=== PATIENT | male | born 1955 | race Caucasian/White ===

== ENCOUNTER 2022-03-10 05:20 | Observation (INO) | payer MEDICARE, SELFPAY ==
[2022-03-10] VITALS (11 sets, daily range): BP systolic 125–154; BP diastolic 58–76; PULSE 57–70; RESP 16–20; TEMP 36.1–37.2; O2SAT 96–100; BMI 34.9
--- NOTE | 2022-03-10 | ECHO_ITS ---
Patient Info Name: Gustabo Lau Age: 66 years : 1955 Gender: Male Ht: 75 in Wt: 294 lbs BSA: 2.70 m2 HR: 61 bpm BP: 135 / 58 mmHg Technical Quality: Fair Exam Date: 03/10/2022 11:49 AM Exam Location: [facility] Pulmonary Exam Room: 340 Patient Status: Outpatient Admit Date: 03/10/2022 Staff Ordering Physician: Micky Anderson Mechanic Chief: Shanell Aleln RDCS Attending Provider: Dewey Islas MD Referring Physician: Justin SIN; Exam Type: CA echo doppler w bubble study Study Info Indications - TIA Complete two-dimensional, color flow and Doppler transthoracic echocardiogram is performed with agitated saline. Contrast/Agitated Saline Contrast/Ag. Saline: Agitated Saline Amount: 20.00 ml Existing IV Access: Yes Summary 1. Left ventricular chamber dimension is normal. 2. Left ventricular systolic function is normal, estimated at 60-65%. 3. The left ventricular diastolic function is grade I diastolic dysfunction. 4. E/e' 7 is not elevated. 5. Left atrial chamber dimension is mildly enlarged. 6. There is trace mitral valve regurgitation. 7. No pulmonary hypertension, estimated pulmonary arterial systolic pressure is 24 mmHg. 8. There is trace pulmonic regurgitation. Left Ventricle E/e' 7 is not elevated. Left ventricular chamber dimension is normal. Left ventricular systolic function is normal, estimated at 60-65%. The left ventricular diastolic function is grade I diastolic dysfunction. Right Ventricle Right ventricular chamber dimension is normal. Right ventricular systolic function is normal. Left Atria Left atrial chamber dimension is mildly enlarged. Right Atria Right atrial chamber dimension is normal. Atrial Septum Agitated saline injection with and without valsalva maneuver opacified right side cardiac chambers without obvious shunt to left side cardiac chambers. Intact interatrial septum visualized by 2D and agitated saline imaging. Aortic Valve The aortic valve is trileaflet. There is no aortic valve stenosis. There is no aortic valve regurgitation. Pulmonic Valve There is trace pulmonic regurgitation. Mitral Valve There is no mitral valve stenosis. There is trace mitral valve regurgitation. Tricuspid Valve There is no tricuspid valve regurgitation. No pulmonary hypertension, estimated pulmonary arterial systolic pressure is 24 mmHg. Pericardium/Pleural There is no pericardial effusion. Inferior Vena Cava Normal inferior vena cava with >50% collapse upon inspiration consistent with normal right atrial pressure, 5 mmHg. Aorta The aortic root size at the sinus of Valsalva is normal. Left Ventricular Outflow Tract Name Value Normal LVOT 2D LVOT Diameter 2.2 cm LVOT Doppler LVOT Peak Velocity 119 cm/s LVOT Peak Gradient 6 mmHg LVOT Mean Gradient 3 mmHg LVOT VTI 25 cm LVOT VTI/AV VTI Ratio 0.8 LVOT Stroke Volume
--- NOTE | ~2022-03-10 | MR_ITS ---
EXAMINATION: MR brain/brain stem wo con EXAM DATE: 03/10/2022 12:59 INDICATION: Transient ischemic attack. Right arm and leg numbness and tingling. TECHNIQUE: Magnetic resonance imaging (MRI) of the brain/brain stem obtained without contrast. Keenanitt al T1, axial diffusion, gradient echo (T2*), T1, T2, FLAIR sequences obtained. Correlation is made t o head CT earlier same day. FINDINGS: Punctate cortical acute infarction in the right frontal lobe. Linear 1 x 5 mm region of inc reased diffusion weighted signal in the left periventricular region, possible acute infarction (this left-sided infarct could cause right-sided symptoms clinically). There is no hemorrhagic conversion. No brain mass, extra-axial collections, obstructive hydrocephalus. Flow voids are seen in the cerebra l arteries on the T2 weighted sequences consistent with their expected patency. Orbits and soft ti ssues are unremarkable. IMPRESSION: Punctate right cortical and small left periventricular infarctions which are probably ac darron. Reviewed, dictated and finalized at location B. IMPRESSION: Punctate right cortical and small left periventricular infarctions which are probably acute.
--- NOTE | ~2022-03-10 | CT_ITS ---
EXAMINATION: CT brain wo con INDICATION: Suspected stroke COMPARISON: None TECHNIQUE: Standard unenhanced head CT. The dose-length product (DLP) was 605.33 mGy-cm. The mA was a djusted according to patient size. Iterative reconstruction technique was employed. FINDINGS: There is no intracranial hemorrhage, acute infarction, or abnormal mass lesion. The ventric les are normal. There is no abnormal mass effect or midline shift. The smart-white matter differentiat ion is normal. The basal cisterns are patent. The orbits are normal. The paranasal sinuses, mastoids and calvarium are normal. IMPRESSION: 1. No acute intracranial abnormality. Reviewed, dictated and finalized at location A.
--- NOTE | ~2022-03-10 | US_ITS ---
EXAMINATION: US carotid duplex BI DATE: 03/10/2022 13:28 INDICATION: Right frontal lobe infarct. Transient ischemic attack. TECHNIQUE: Grayscale, color Doppler, and pulsed Doppler images of the cervical carotid arteries were obtained. The degree of vessel stenosis is placed in one of the following categories: normal, <50%, 5 0-69%, >=70% but less than near-occlusion, near-occlusion, or total occlusion. Note that percent sten osis relative to normal distal artery lumen diameter is indirectly measured from velocity measurement s as described by Eliot, et al. Radiology 2003; 229:340-346. COMPARISON: None. FINDINGS: RIGHT: The right common carotid artery (CCA) peak systolic velocity (PSV) is 127 cm/s. The right internal ca rotid artery (ICA) PSV is 83 cm/s. The right ICA end-diastolic velocity (EDV) is 21 cm/s. The right I CA/CCA PSV ratio is 0.7. Grayscale and color Doppler images yield an estimate of <50% diameter reduct ion from plaque in the ICA. There is antegrade flow in the right vertebral artery. LEFT: The left CCA PSV is 111 cm/s. The left ICA PSV is 94 cm/s. The left ICA EDV is 21 cm/s. The left ICA/ CCA PSV ratio is 0.9. Grayscale and color Doppler images yield an estimate of <50% diameter reduction from plaque in the ICA. There is antegrade flow in the left vertebral artery. IMPRESSION: 1. <50% stenosis in the right internal carotid artery. 2. <50% stenosis in the left internal carotid artery. Reviewed, dictated and finalized at location A.
--- NOTE | ~2022-03-10 | XR_ITS ---
EXAMINATION: XR chest 1V portable INDICATION: Stroke symptoms, suspected CVA TECHNIQUE: Portable AP chest at 0616 hours COMPARISON: None available FINDINGS: The lungs are free of acute opacities. There is no pleural effusion or pneumothorax. The ca rdiomediastinal silhouette is normal. IMPRESSION: 1. No acute cardiopulmonary abnormality. Reviewed, dictated and finalized at location A.
--- NOTE | 2022-03-10 05:22 | ECG_ITS ---
Measurements Intervals [employer] Rate: 60 P: 72 WY: 185 QRS: -7 QRSD: 108 T: 31 QT: 396 QTc: 398 Interpretive Statements SINUS RHYTHM WITH OCCASIONAL VENTRICULAR PREMATURE COMPLEXES NONSPECIFIC T-WAVE ABNORMALITY ABNORMAL ECG NO PREVIOUS ECG AVAILABLE FOR COMPARISON Electronically Signed On 03-10-2022 15:45:59 CDT by Oliver Hensley M.D.
--- NOTE | 2022-03-10 05:47 | ED.NEUROSD ---
HPI - Neuro Symptoms/Deficit General Chief Complaint: Suspected CVA Stated Complaint: cva symptoms Time Seen by Provider: 03/10/22 05:30 Source: patient and EMS Mode of arrival: EMS Limitations: no limitations History of Present Illness HPI Narrative: 66-year-old male states he was in his normal state of health when he went to bed about 9:00 last night. He woke up with some numbness to his right arm. He states he is had this in both of his hands in the past but never to his arm. He got concerned and then he could not use his right arm. He also states the time he could not use his right leg. That was at 415 this morning when he woke up. 911 was chronic brought in by EMS. Per EMS on their arrival his right arm and right leg were flaccid. By the time he got to the emergency room and was coming in from the ambulance bay he had full recovery and full use of his right arm and right leg completely. He never had any difficulty in speaking. There is no facial asymmetry. He has never had anything like this before. He does have a history of hypertension. Related Data Allergies Allergy/AdvReac Type Severity Reaction Status Date / Time Tetanus Vaccines and Toxoid Allergy Hives Verified 03/10/22 05:35 Review of Systems Review of Systems: CONSTITUTIONAL: Denies fever, chills, or sweats. EYES: Denies visual changes, redness, or discharge. ENT: Denies rhinorrhea, congestion, sore throat, or otalgia. CARDIOVASCULAR: Denies chest pain, palpitations, or edema. RESPIRATORY: Denies cough or dyspnea. GASTROINTESTINAL: Denies abdominal pain, nausea, vomiting, or diarrhea. GENITOURINARY: Denies dysuria or hematuria. SKIN: Denies rash or itching. MUSCULOSKELETAL: Denies back pain, joint pain, or myalgia. NEUROLOGIC: No headache. Patient had weakness to the entire right side including right arm and leg. PSYCHIATRIC: Denies anxiety or depression. Exam Narrative: APPEARANCE: Well appearing, no pain or distress, well-nourished. Head normocephalic and atraumatic. EYES: PERRLA/EOMI, conjunctivae very clear. NOSE: Normal with no drainage EARS:TMS clear Javier Kelsey, with good light reflex. THROAT: Pharynx clear, no exudate. NECK: Supple. No adenopathy, no masses. RESPIRATORY: Airway patent, respirations nonlabored. Clear to auscultation bilaterally, no rales, rhonchi, wheezing. CARDIOVASCULAR: Regular rate and rhythm without murmurs, rubs, or gallops. ABDOMINAL: Soft, nontender, nondistended, no hepatosplenomegaly Musculoskeletal: Moves all extremities. Strength/ROM intact, No edema, No calf tenderness. NEURO: Alert. Cranial nerves II through XII intact. Normal gait. Good coordination. Nonfocal examination. SKIN:: Warm, dry. Normal Color PSYCHIATRIC: Normal affect/mood, normal interaction Course Vital Signs Vital signs: Vital Signs Temperature 97.0 F L 03/10/22 05:25 Pulse Rate 70 03/10/22 05:25 Respiratory Rate 16 03/10/22 05:25 Blood Pressure 154/69 H 03/10/22 05:25 Pulse Oximetry 100 03/10/22 05:25 Temperature 97.0 F L 03/10/22 05:25 Pulse Rate 64 03/10/22 05:33 Respiratory Rate 16 03/10/22 05:33 Blood Pressure 154/69 H 03/10/22 05:33 Pulse Oximetry 98 03/10/22 05:33 MDM - Neuro Symptoms/Deficit MDM Narrative Medical decision making narrative: Patient had a significant TIA with flaccidity to the right arm and right leg. It resolved after about 1-1/[address] scan shows no acute pathology or intracranial bleed at this time. Patient will be admitted to the hospital for additional work-up and evaluation. This was all explained to the patient. Discussed with the hospitalist and she agrees. Lab Data Attestation: I reviewed the patient's lab results. Result diagrams: 03/10/22 05:41 03/10/22 05:41 Labs: Lab Results 03/10/22 03/10/22 03/10/22 Range/Units 05:41 05:41 05:41 WBC 6.9 (4.5-10.0) K/mm3 RBC 4.55 L (4.6-6.20) M/mm3 Hgb 14.6 (14.0-18.0) g/dL Hct 44.9
[2022-03-10 05:50] LABS: Basophils Percent Auto 0.6 % (0.2-1.2); Eosinophils Absolute Auto 0.3 K/mm3 (0-0.3); Eosinophils Percent Auto 3.9 % (0-4.4); Hematocrit 44.9 % (42.0-52.0); Hemoglobin 14.6 g/dL (14.0-18.0); Immature Granulocyte Absolute 0.06 K/mm3 (0.00-0.031); Immature Granulocyte Percent A 0.9 % (0-0.5); Immature Platelet Fraction Pct 1.6 % (0.9-11.2); Lymphocytes Absolute Auto 1.39 K/mm3 (0.9-3.2); Lymphocytes Percent Auto 20.2 % (18.3-44.2); Mean Corpuscular HGB Conc 32.5 g/dl (32-36); Mean Corpuscular Hemoglobin 32.1 pg (26-34); Mean Corpuscular Volume 98.7 fl (80-100); Mean Platelet Volume 8.5 fl (7.4-10.4); Monocytes Absolute Auto 0.8 K/mm3 (0.1-0.6); Monocytes Percent Auto 12.2 % (2.6-8.5); Neutrophils Absolute Auto 4.3 K/mm3 (1.3-6.7); Neutrophils Percent Auto 62.2 % (45.5-73.1); Platelet Count Result 166 k/mm3 (150-375); Red Blood Count 4.55 M/mm3 (4.6-6.20); Red Cell Distribution Width 12.8 % (11.5-14.5); White Blood Count 6.9 K/mm3 (4.5-10.0)
[2022-03-10 06:00] LABS: Alanine Aminotransferase 40 U/L (4-50); Albumin Level 3.9 g/dL (3.5-5.1); Alkaline Phosphatase 84 U/L (38-126); Anion Gap 6 mmol/L (8-16); Aspartate Amino Transferase 34 U/L (17-59); Blood Urea Nitrogen 13 mg/dL (9-20); Calcium 8.6 mg/dL (8.4-10.2); Carbon Dioxide 25 mmol/L (22-30); Chloride 104 mmol/L (98-107); Estimated CRCL calculation 109 ml/min; Estimated Glomerular Filt Rate > 60; Glucose 115 mg/dL (65-110); Sodium 135 mmol/L (137-145)
[2022-03-10 06:09] LABS: INR 1.3; Partial Thromboplastin Time 29.8 SECONDS (22.3-36.8); Prothrombin Time 15.5 Seconds (11.1-14.7)
[2022-03-10 06:10] LABS: Troponin I 0.021 ng/mL (0.000-0.034)
[2022-03-10 07:34] LABS: Glucose Point of Care 118 mg/dl (65-105)
--- NOTE | 2022-03-10 08:09 | PC.NURSE ---
called for report. nurse will call back.
--- NOTE | 2022-03-10 10:01 | ADMGEN ---
This patient, Gustabo Lau, was admitted to Medical Room 340-01. Patient/family oriented to hospital policies and general routines including ID bracelet, bed and alarms, visiting hours, pain management, procedures, bathroom and other care routines, personal items, smoking policy, room service/diet, and visiting hours. Information on how to activate the Rapid Response Team has been discussed. Patient/Family are encouraged to report perceived risks to care and to ask questions if they do not understand what they are told or what they should do.
--- NOTE | 2022-03-10 10:25 | PM.IMHP ---
H&P: HPI History of Present Illness Date/Time: 03/10/22 10:25 Chief Complaint: unilateral weakness Narrative: patient is a 66-year-old male with past medical history of hyperlipidemia, hypertension, BPH, hypothyroidism, who presented to the ED with complaints of right-sided weakness. Patient stated that he woke up around 430 went to the bathroom came back to bed when he came back to bed his leg had a cramp in it. He also stated that he had some numbness and tingling in his right arm and when he went to move his arm it just fell to the floor his it was paralyzed. He also stated that he was having numbness tingling in his leg as well. When he tried to get up this morning he could not use his right side. Patient denies any headache or blurred vision, chest pain, shortness of breath, palpitations, weakness, fatigue, nausea, vomiting, fevers, sweats, chills. Patient did state that he had a little diarrhea yesterday. He also stated that he just finished a Z-Bharathi for what he said was a cold. He stated that he has had mostly congestion and a cough which has been producing a thick clear sputum. Patient denies having symptoms this before however he did state that he had back fracture from falling out of a truck when he was younger. NIH score was 0. head CT showed no intracranial abnormality. Chest x-ray showed no acute findings. Patient is being admitted to the hospitalist service under observation Review of Systems Review of Systems: All systems reviewed & are unremarkable except as noted in HPI and below PMFSH Past Medical History Medical History BPH (benign prostatic hyperplasia) Hyperlipidemia Hypertension Hypothyroidism Surgical History Surgical History History of bilateral knee arthroplasty Family History Family History Father Diabetes mellitus Acute myocardial infarction Mother Diabetes mellitus Social History Social History (Updated 03/10/22 @ 10:31 by KAMILAH Woodruff) Social History: Patient lives somewhere around [facility]. He stated that his daughter Kennedi Fuentes phone number [phone] will be his surrogate. 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 Gender identity (if verbalized by the patient): Male Sexual Orientation (if Verbalized by the Patient): Straight or Heterosexual Spiritual care concerns: No Agree to blood products: Yes Meds Home Medications and Allergies Home Medications Medication Instructions Recorded Confirmed Type atorvastatin 10 mg PO DAILY 03/10/22 03/10/22 History hydrocodone-acetaminophen 5 - 325 tablet PO Q6H PRN 03/10/22 03/10/22 History levothyroxine 25 mcg PO DAILY 03/10/22 03/10/22 History lisinopril 20 mg PO DAILY 03/10/22 03/10/22 History tamsulosin [Flomax] 0.4 mg PO DAILY 03/10/22 03/10/22 History Allergies Allergy/AdvReac Type Severity Reaction Status Date / Time Tetanus Vaccines and Toxoid Allergy Hives Verified 03/10/22 05:35 Vital Signs Vital Signs - 24 hr 03/10/22 05:25 03/10/22 05:33 03/10/22 06:44 Temperature 97.0 F L Pulse Rate 70 64 60 Respiratory Rate 16 16 18 Blood Pressure 154/69 H 154/69 H Pulse Oximetry 100 98 96 03/10/22 07:17 03/10/22 08:39 03/10/22 08:43 Temperature 98.9 F Pulse Rate 67 65 60 Respiratory Rate 17 17 20 Blood Pressure 137/76 152/72 H 135/58 L Pulse Oximetry 97 98 99 Exam Const: General: cooperative, healthy appearing, no acute distress, well developed, alert and awake Nutrition
--- NOTE | 2022-03-10 10:25 | WPDNEURCNPN ---
Consult date: 03/10/22 HPI: Gustabo Lau is a 66 year old male admitted to the hospital through the emergency room with information that he was in his normal state of health when he went to bed about 9:00 p.m. last night woke up with complaints of numbness of the right upper extremity. He reported that he has had this problem in his both hands in the past but never to his right arm he was unable to use his right upper extremity also could not use his right lower extremity this was around at 4:15 a.m. in the morning when he woke up 911 was called and as per the EMS his right upper and right lower extremity on arrival were flaccid but by the time he came to the emergency room the deficit is completely gone he had no difficulties in speech or any visual problem. At the time of arrival to the emergency room his vital signs were stable with blood pressure 154/69 his general and physical examination including neuro was nonfocal evaluation included thus normal CBC normal BMP normal EKG with occasional PVCs and was admitted to the hospital with the diagnosis of TIA. The CT scan of the head was negative with no evidence of bleed. MRI of the brain documented punctate right cortical and small left periventricular infarction which are probably acute Review of Systems Review of Systems: All systems reviewed & are unremarkable except as noted in HPI and below PMFSH Past Medical History Medical History BPH (benign prostatic hyperplasia) Hyperlipidemia Hypertension Hypothyroidism Surgical History Surgical History History of bilateral knee arthroplasty Family History Family History Father Diabetes mellitus Acute myocardial infarction Mother Diabetes mellitus Social History Social History Social History: Patient lives somewhere around [facility]. He stated that his daughter Kennedi Fuentes phone number [phone] will be his surrogate. 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 Gender identity (if verbalized by the patient): Male Sexual Orientation (if Verbalized by the Patient): Straight or Heterosexual Spiritual care concerns: No Agree to blood products: Yes Meds Home Medications and Allergies Home Medications Medication Instructions Recorded Confirmed Type atorvastatin 10 mg PO DAILY 03/10/22 03/10/22 History hydrocodone-acetaminophen 5 - 325 tablet PO Q6H PRN 03/10/22 03/10/22 History levothyroxine 25 mcg PO DAILY 03/10/22 03/10/22 History lisinopril 20 mg PO DAILY 03/10/22 03/10/22 History tamsulosin [Flomax] 0.4 mg PO DAILY 03/10/22 03/10/22 History Allergies Allergy/AdvReac Type Severity Reaction Status Date / Time Tetanus Vaccines and Toxoid Allergy Hives Verified 03/10/22 05:35 Vital Signs Vital Signs - 24 hr 03/10/22 05:25 03/10/22 05:33 03/10/22 06:44 Temperature 36.1 C L Pulse Rate 70 64 60 Respiratory Rate 16 16 18 Blood Pressure 154/69 H 154/69 H Pulse Oximetry 100 98 96 03/10/22 07:17 03/10/22 08:39 03/10/22 08:43 Temperature 37.2 C Pulse Rate 67 65 60 Respiratory Rate 17 17 20 Blood Pressure 137/76 152/72 H 135/58 L Pulse Oximetry 97 98 99 Results Labs CBC & Chem 7: 03/10/22 05:41 03/10/22 05:41 Labs: Short CBC 03/10/22 Range/Units 05:41 WBC 6.9 (4.5-10.0) K/mm3 Hgb 14.6 (14.0-18.0) g/dL Hct 44.9 (42.0-52.0) % Plt Count 166 (150-375) k/mm3 BMP 03/10/22 05:41 Sodium 135 L Potassium 4.
[2022-03-10] MEDS: ASPIRIN 81 MG ENTERIC TABLET PO (11:32)
[2022-03-10] MEDS: LEVOTHYROXINE SODIUM 25 MCG TABLET PO (13:32)
[2022-03-10] MEDS: TAMSULOSIN HCL 0.4 MG CAPSULE PO (13:32)
[2022-03-10] MEDS: lisinopriL 20 MG TABLET PO (13:32)
[2022-03-10] MEDS: CLOPIDOGREL BISULFATE 75 MG TABLET PO (14:43)
[2022-03-10] MEDS: HYDROcodone/acetaminophen (*CRX) 5-325 MG TABLET 1 TAB PO (14:45)
[2022-03-11] VITALS: PULSE 56
[2022-03-11 04:00] VITALS: PULSE 59
[2022-03-11] MEDS: LEVOTHYROXINE SODIUM 25 MCG TABLET PO (06:12)
[2022-03-11 06:27] VITALS: BP 113/59; PULSE 57; RESP 16; TEMP 37.1; O2SAT 98
--- NOTE | 2022-03-11 07:39 | PM.IMPN ---
Progress Note: A&P Assessment and Plan (1) TIA (transient ischemic attack): Code(s): G45.9 - Transient cerebral ischemic attack, unspecified Status: Acute Assessment and Plan: last known normal was 415 this morning symptoms lasted for 30 minutes current NIH score is 0 neurology consult thank you for your help MRI of the brain Punctate right cortical and small left periventricular infarctions which are probably acute. carotid Doppler echo head CT shows no intracranial abnormality currently on atorvastatin start aspirin Started patient on Plavix 03/11/22 - Current NIH score is 0. - Continue Plavix, ASA, and Statin. - Negative Head CT and CTA of head and neck. - MRI suspicious for acute CVA. - ECHO with 60-65% EF and normal LVSF. Diastolic grade 1 dysfunction. No pulmonary HTN. - PT and OT ordered for evaluation for preparation for return home. (2) Hypothyroidism: Qualifiers: Hypothyroidism type: unspecified Qualified Code(s): E03.9 - Hypothyroidism, unspecified Code(s): E03.9 - Hypothyroidism, unspecified Status: Acute Assessment and Plan: continue patient's levothyroxine TSH 3.720 (3) BPH (benign prostatic hyperplasia): Qualifiers: Lower urinary tract symptom presence: symptoms absent Qualified Code(s): N40.0 - Benign prostatic hyperplasia without lower urinary tract symptoms Code(s): N40.0 - Benign prostatic hyperplasia without lower urinary tract symptoms Status: Acute Assessment and Plan: continue tamsulosin trend urine output post residual void if indicated (4) Hyperlipidemia: Qualifiers: Hyperlipidemia type: unspecified Qualified Code(s): E78.5 - Hyperlipidemia, unspecified Code(s): E78.5 - Hyperlipidemia, unspecified Status: Acute Assessment and Plan: continue atorvastatin from home 03/11/22: - Continue statin therapy as it is appropriate in the setting of Acute CVA. Time Spent With Patient Time with patient: 15 - 25 minutes Subjective Date/time seen: 03/11/22 07:39 This pt. was examined at the bedside in interval assessment after being admitted to the hospital status post CVA manifested by Right sided weakness. MRI showed that he had punctate right cortical and small left sided periventricular infarctions. He is on Plavix, ASA and statin therapy currently. ECHO shows a grade 1 diastolic dysfunction without aortic stenosis, and his LVSF is preserved at 60-65%. There is no Pulmonary HTN. Carotid dopplers were negative and Head CT is negative. Chest x-ray is negative. Current NIH score is 0. He currently denies any headache, dizziness, lightheadedness or other neurological deficits. Awaiting Neurological final recommendations as well as PT/OT evaluations for preparation of returning home. Review of Systems Review of Systems: All systems reviewed & are unremarkable except as noted in HPI and below Objective Data Vital Signs Vital Signs: Vital Signs - 24 hr 03/10/22 08:39 03/10/22 08:43 03/10/22 12:00 Temperature 98.9 F Pulse Rate 65 60 57 L Respiratory Rate 17 20 Blood Pressure 152/72 H 135/58 L Pulse Oximetry 98 99 03/10/22 14:00 03/10/22 16:00 03/10/22 20:00 Temperature 97.6 F Pulse Rate 63 61 65 Respiratory Rate 18 Blood Pressure 142/75 H Pulse Oximetry 97 03/10/22 21:00 03/11/22 00:00 03/11/22 04:00 Temperature 98.7 F Pulse Rate 65 56 L 59 L Respiratory Rate 18 Blood Pressure 125/58 L Pulse Oximetry 98 03/11/22 06:27 Temperature 98.8 F Pulse Rate 57 L Respiratory Rate 16 Blood Pressure 113/59 L Pulse Oximetry 98 Intake/Output Intake/Output: Intake & Output 03/08/22 03/09/22 03/10/22 03/11/22 23:59 23:59 23:59 23:59 Intake Total 600 550 Output Total 300 Balance 300 550 Meds/Results Medications: Active Medications Generic Name Dose Route St
[2022-03-11 08:00] VITALS: PULSE 78
[2022-03-11] MEDS: ASPIRIN 81 MG ENTERIC TABLET PO (08:08)
[2022-03-11] MEDS: TAMSULOSIN HCL 0.4 MG CAPSULE PO (08:08)
[2022-03-11] MEDS: CLOPIDOGREL BISULFATE 75 MG TABLET PO (08:08)
[2022-03-11] MEDS: lisinopriL 20 MG TABLET PO (08:08)
[2022-03-11] MEDS: ATORVASTATIN 40 MG TABLET PO (08:08)
[2022-03-11 08:12] VITALS: BP 137/58
--- NOTE | 2022-03-11 08:56 | PCPTNOTE ---
Received PT orders for pt; discussed pt with SHITAL Schneider. She stated pt was indep with walking and getting around in his room by himself without any problems. And is going home. She stated PT & OT did not need to see the pt, not needed. PT evaluation was not performed due to pt indep per RN report.
--- NOTE | 2022-03-11 10:21 | PM.DS ---
DS: Admitting Diagnosis Discharge Date March 11, 2022 Admitting Diagnosis 1. TIA 2. Hypothyroidism 3. BPH 4. Hyperlipidemia DS: Discharge Diagnosis Discharge Diagnosis (1) TIA (transient ischemic attack): Code(s): G45.9 - Transient cerebral ischemic attack, unspecified Status: Acute Assessment and Plan: last known normal was 415 this morning symptoms lasted for 30 minutes current NIH score is 0 neurology consult thank you for your help MRI of the brain Punctate right cortical and small left periventricular infarctions which are probably acute. carotid Doppler echo head CT shows no intracranial abnormality currently on atorvastatin start aspirin Started patient on Plavix 03/11/22 - Current NIH score is 0. - Continue Plavix, ASA, and Statin. - Negative Head CT and CTA of head and neck. - MRI suspicious for acute CVA. - ECHO with 60-65% EF and normal LVSF. Diastolic grade 1 dysfunction. No pulmonary HTN. - PT and OT ordered for evaluation for preparation for return home. - Follow up with Dr. Long in three months. - Lifestyle changes were discussed with the patient for weight loss and regular exercise with a Cardiac, low salt diet. (2) Hypothyroidism: Qualifiers: Hypothyroidism type: unspecified Qualified Code(s): E03.9 - Hypothyroidism, unspecified Code(s): E03.9 - Hypothyroidism, unspecified Status: Acute Assessment and Plan: continue patient's levothyroxine TSH 3.720 (3) BPH (benign prostatic hyperplasia): Qualifiers: Lower urinary tract symptom presence: symptoms absent Qualified Code(s): N40.0 - Benign prostatic hyperplasia without lower urinary tract symptoms Code(s): N40.0 - Benign prostatic hyperplasia without lower urinary tract symptoms Status: Acute Assessment and Plan: continue tamsulosin trend urine output post residual void if indicated (4) Hyperlipidemia: Qualifiers: Hyperlipidemia type: unspecified Qualified Code(s): E78.5 - Hyperlipidemia, unspecified Code(s): E78.5 - Hyperlipidemia, unspecified Status: Acute Assessment and Plan: continue atorvastatin from home 03/11/22: - Continue statin therapy as it is appropriate in the setting of Acute CVA. DS: Summary Hospital Course Reason for hospitalization: Stroke Hospital Course: This 66-year-old male patient with significant past medical history of hyperlipidemia, hypertension, BPH, hypothyroidism presented to the emergency room on March 10, 2022 with complaints of right-sided weakness. Patient does state he woke up yesterday morning at approximately 4:30 a.m. went to the bathroom came back to bed and when he did he had a cramp in his leg. He states that he then started having numbness and tingling in his right arm and that when attempting to move his arm it just fell to the floor and he could not move at all. The same was present on the right leg. As the time went on he was unable to lift his right leg and therefore came to the emergency room where upon arrival his NIH score was 0. Head CT showed no acute abnormality and chest x-ray was negative as well. Patient was admitted to the hospital for expert neurological evaluation and management. Patient had carotid Dopplers performed that were negative for any significant stenosis of 50%, and MRI of the brain showed punctate right cortical and small left periventricular infarctions. Patient was started on Plavix and aspirin in addition to the statin he is already on and all of his fine and gross motor symptoms have returned to baseline. Neurology consulted and recommend continuing DAPT and lifestyle changes and following up with him in 3 months. Status at Discharge Functional status at discharge: independent ambulation Overall status at discharge: patient is back to baseline Time Spent with Patient Time attestation: Tot
== END 2022-03-11 11:11 | disposition home or self-care (01) ==
LOC: ANHED 06:23 → ANH3MED 07:58
PROVIDERS: Nurse Practitioner; Admitting Provider Internal Medicine; Emergency Provider Emergency Medicine; PCP Family Medicine; Visit Provider Nurse Practitioner Adult Health
DX: G45.9 Transient cerebral ischemic attack, unspecified (principal); I10 Essential (primary) hypertension; E78.5 Hyperlipidemia, unspecified; E03.9 Hypothyroidism, unspecified; N40.0 Benign prostatic hyperplasia without lower urinary tract symptoms
CPT/HCPCS: 36415; 70450; 70551; 71045; 80053; 82948; 84443; 84484; 85025; 85055; 85610; 85730; 93005; 93306; 93880; 96375; 99285; A9270; G0378